=== PATIENT | female | born 1990 | race Caucasian/White ===

== ENCOUNTER → 2017-03-17 | Outpatient (CLI) | payer OTHER ==
--- NOTE | 2017-03-17 13:55 | US ---
EXAMINATION TYPE: US OB <= 14 wk fetus DATE OF EXAM: 03/17/2017 COMPARISON: NONE CLINICAL HISTORY: Z36 Confirm dates. Confirm Dates, pt has no complaints at this time Large pt body habitus EXAM PERFORMED: Transabdominal (TA) EXAM MEASUREMENTS: GESTATIONAL AGE / DATING Physician Established: (13 weeks/1 days) EDC: 09/21/2017 Dates by LMP: Unknown Dates by First Scan: No prior Dates by Current Scan for: (11 weeks/5 days) EDC: 10/01/2017 MATERNAL ANATOMY Uterus: 16.8 x 7.0 x 2.4 cm Right Ovary: 2.4 x 1.5 x 2.3 cm Left Ovary: 3.8 x 2.7 x 3.0 cm Post CDS / Adnexa: wnl Presence of free fluid: No Presence of corpus luteal cyst: Left Ovary= 2.6 x 2.0 x 2.9 cm Presence of subchorionic bleed: No GESTATION / SURVEY CRL: 4.9 cm (11 weeks/5 days) MSD: wnl Heart Rate: 160 bpm Rhythm: Normal IUP: Viable IUP Single, viable IUP/ No abnormality seen at this time Single live into gestation is confirmed as gestational sac and pole are identified. Yolk sac is not clearly seen. No free fluid is seen in pelvic cul-de-sac. Both ovaries are identified. Within the left ovary there is 2.6 cm oval hypoechoic anechoic lesion fe lt to reflect corpus luteal cyst in the periphery. No suspicious extraovarian adnexal lesion is seen. IMPRESSION: Single live intrauterine gestation is confirmed, mean crown-rump length is 4.9 cm corresponding to 11 weeks 5 day old fetus.
[2017-03-17 13:59] LABS: CH 28.3; CHCM 31.9; HCT 35.6 % (34.0-46.0); HDW 2.24; HGB 11.6 gm/dL (11.4-16.0); MCH 29.1 pg (25.0-35.0); MCHC 32.6 g/dL (31.0-37.0); MCV 89.1 fL (80.0-100.0); RDW 13.3 % (11.5-15.5); WBC 10.4 k/uL (3.8-10.6)
[2017-03-17 14:06] LABS: Glucose 100 mg/dL (74-99); Non-African American GFR(MDRD) >60 (>60 ml/min/1.73 sqM)
[2017-03-17 19:00] LABS: Treponemal Ab Non-Reactive (Non-Reactive)
== END | disposition home or self-care (01) ==
LOC: RADUSWWP 12:58
PROVIDERS: ATTEND Obstetrics & Gynecology
DX: Z36.9 Encounter for antenatal screening, unspecified (principal); O26.811 Pregnancy related exhaustion and fatigue, first trimester; Z3A.11 11 weeks gestation of pregnancy
CPT/HCPCS: 36415; 76801; 82565; 82947; 85027; 86762; 86777; 86778; 86780; 86850; 86900; 86901; 87340; 87390

== ENCOUNTER 2017-09-24 05:55 | Inpatient (IN) | payer OTHER ==
--- NOTE | 2017-09-23 19:55 | P.HPOB ---
History of Present Illness H&P Date: 09/23/17 Chief Complaint: Scheduled repeat section This is a 27-year-old female 3 para 2 with an estimated date of confinement of 10/01/2017, estimated gestational age of 39-0/7 weeks, who presents to labor and delivery for scheduled repeat section. Her course has been essentially uncomplicated. labs: GC/chlamydia-negative Hepatitis B surface antigen-negative on nonreactive HIV-nonreactive Rubella-immune Syphilis antibody-negative nonreactive Random glucose-100 Hemoglobin-11.6 Toxoplasma-negative Blood type-A+ Antibody screen-negative Obstetrical ultrasound-normal anatomy One hour Glucola-118 Group B streptococcus-negative Obstetrical history: G 3 P2. History of 2 previous sections. Gynecologic history: No history of sexually transmitted diseases. Social history: She is . She is a [id number] mom. Review of Systems Constitutional: Denies chills, Denies fever Eyes: denies blurred vision, denies pain Ears, nose, mouth and throat: Denies headache, Denies sore throat Cardiovascular: Denies chest pain, Denies shortness of breath Respiratory: Denies cough Gastrointestinal: Reports abdominal pain (Irregular contractions) Genitourinary: Reports pelvic pain, Reports Musculoskeletal: Reports low back pain Integumentary: Denies pruritus, Denies rash Neurological: Denies numbness, Denies weakness Psychiatric: Reports anxiety, Denies depression Past Medical History Past Medical History: No Reported History History of Any Multi-Drug Resistant Organisms: None Reported Past Surgical History: Section (2), Cholecystectomy Past Anesthesia/Blood Transfusion Reactions: Postoperative Nausea & Vomiting ( PONV) Past Psychological History: Anxiety Smoking Status: Former smoker Past Alcohol Use History: Occasional - Past Family History Mother Family Medical History: Cancer Additional Family Medical History / Comment(s): CERVICAL Sister(s) Family Medical History: Cancer Additional Family Medical History / Comment(s): CERVICAL Medications and Allergies Home Medications Medication Instructions Recorded Confirmed Type Pnv,Calcium 72/Iron/Folic Acid 1 tab PO DAILY 01/13/14 09/23/17 History [Pnv Plus Multivit Tab] Iron 45mg 45 mg PO DAILY 09/23/17 History Allergies Allergy/AdvReac Type Severity Reaction Status Date / Time No Known Allergies Allergy Verified 09/23/17 14:35 Exam Osteopathic Statement: *. No significant issues noted on an osteopathic structural exam other than those noted in the History and Physical/Consult. - Vital Signs Vital signs: Intake and Output 09/23/17 09/23/17 09/23/17 06:59 14:59 22:59 Other: Weight 101.151 kg HEENT: Within normal limits Heart: Regular rate and rhythm Lungs: Clear to auscultation bilaterally Abdomen: Cervix: Closed/60%/-3 station heart tones: 150s by Doppler Extremities: Negative Homans Assessment and Plan (1) 39 weeks gestation of Status: Acute Code(s): Z3A.39 - 39 WEEKS GESTATION OF SNOMED Code( s): 29536697 (2) Previous delivery affecting Status: Acute Code(s): O34.21 - MATERNAL CARE FOR SCAR FROM PREVIOUS * DO NOT USE * SNOMED Code(s): 325053872 Plan: Proceed with repeat low transverse section. I have discussed the risks, benefits, and alternative therapies for the above- mentioned procedure and for both sedation/anesthesia as well as necessary blood products administration, if indicated, as they pertain to this patient. The patient has indicated her understanding and acceptance of the risks and procedures discussed.
[2017-09-24] MEDS ORDERED: LIDOCAINE 1% 20 ML VIAL (10MG/ML) FOR IV START INTRADERMA PRN (06:02)
[2017-09-24] MEDS ORDERED: CITRIC ACID-SODIUM CITRATE 15 ML CUP PO ONE (06:02)
[2017-09-24] MEDS ORDERED: ceFAZolin IN SWFI 2 GM/20 ML SYRINGE IVP ONE (06:02)
[2017-09-24] MEDS ORDERED: LACTATED RINGERS 1,000 ML IV ONE (06:02)
[2017-09-24 06:10] VITALS: BMI 41.9
[2017-09-24] MEDS: LACTATED RINGERS 1,000 ML IV SCH ×3 (06:24→18:20)
[2017-09-24 06:27] LABS: Basophils % (A) 0 %; Eosinophils # (A) 0.1 k/uL (0-0.7); Eosinophils % (A) 1 %; HCT 34.9 % (34.0-46.0); HGB 11.8 gm/dL (11.4-16.0); Lymphocytes # (A) 2.3 k/uL (1.0-4.8); Lymphocytes % (A) 24 %; MCH 28.5 pg (25.0-35.0); MCHC 33.9 g/dL (31.0-37.0); Mean Platelet Volume 7.8; Monocytes # (A) 0.4 k/uL (0-1.0); Monocytes % (A) 4 %; Neutrophils # (A) 6.8 k/uL (1.3-7.7); Neutrophils % (A) 69 %; Platelet Count 188 k/uL (150-450); RBC 4.15 m/uL (3.80-5.40); WBC 9.8 k/uL (3.8-10.6)
[2017-09-24] MEDS ORDERED: KETOROLAC 30 MG/ML 1 ML VIAL ONE (07:52)
[2017-09-24] MEDS ORDERED: ONDANSETRON 4 MG/2 ML VIAL ONE (07:52)
[2017-09-24] MEDS ORDERED: MORPHINE SULFATE (PF) 0.3 MG/0.3 ML SYR ONE (07:52)
[2017-09-24] MEDS ORDERED: NALBUPHINE 10 MG/ML AMPUL ONE (07:52)
[2017-09-24] MEDS ORDERED: PHENYLEPHRINE-0.9% NACL SYG 1 MG/10 ML SYRINGE ONE (07:52)
[2017-09-24] MEDS ORDERED: fentaNYL (PF) 50 MCG/ML 2 ML AMP ONE (07:52)
[2017-09-24] MEDS ORDERED: LACTATED RINGERS 1,000 ML BAG IV ONE (07:52)
[2017-09-24] MEDS ORDERED: OXYTOCIN 10 UNIT/ML 1 ML VIAL ONE (07:52)
[2017-09-24] MEDS ORDERED: ONDANSETRON 4 MG/2 ML VIAL IVP PRN ×2 (08:13→10:01)
[2017-09-24] MEDS ORDERED: HYDROmorphone 0.5 MG/0.5 ML SYRINGE IVP PRN (08:13)
[2017-09-24] MEDS ORDERED: diphenhydrAMINE 50 MG/ML 1 ML VIAL IVP PRN ×3 (08:13→10:01)
[2017-09-24] MEDS ORDERED: NALOXONE 0.4 MG/ML 1 ML VIAL IV PRN ×2 (08:13→10:01)
[2017-09-24] MEDS ORDERED: NALBUPHINE 10 MG/ML AMPUL IV PRN (08:13)
--- NOTE | 2017-09-24 08:33 | P.OP ---
Date of Procedure: 09/24/17 Preoperative Diagnosis: 1. Intrauterine at 39-0/7 weeks. 2. History of previous section. Postoperative Diagnosis: Same Procedure(s) Performed: Repeat low transverse section Anesthesia: spinal (Duramorph) Surgeon: Helen Novak [employer] Assistant Manager #1: Anurag Plummer Estimated Blood Loss (ml): 400 Pathology: other (Placenta) Condition: stable Disposition: floor Indications for Procedure: This is a 27-year-old female 3 para 2 at 39-0/7 weeks who presents for scheduled repeat section. I have discussed the risks, benefits, and alternative therapies for the above- mentioned procedure and for both sedation/anesthesia as well as necessary blood products administration, if indicated, as they pertain to this patient. The patient has indicated her understanding and acceptance of the risks and procedures discussed. Operative Findings: A viable female is noted in the vertex presentation with scores of 9 at 1 minute and 9 at 5 minutes and weight of 7 lbs. 9 oz. Nuchal cord times one was noted. Normal uterus tubes and ovaries are noted. There was an omental adhesion noted to the anterior abdominal wall. Description of Procedure: The patient is taken to the operating room where she is placed in the dorsal supine position with leftward tilt after spinal Duramorph anesthesia is given. She is prepped and draped in the normal sterile fashion. Skin was tested and found to be adequately anesthetized. A Pfannenstiel skin incision was made with a scalpel through the previous laparotomy scar. A second knife was used to carry the incision down to the underlying layer of fascia. The fascia was nicked in the midline with a scalpel and then extended laterally bilaterally with Steele scissors. The anterior lip of the fascia was grasped with 2 Dena clamps and then dissected off the underlying rectus muscle in the midline with Steele scissors. The inferior aspect of the fascial incision was grasped with 2 Dena clamps and dissected off the underlying rectus muscle and the midline with Steele scissors. Next the peritoneum layer was tented up with 2 hemostats and then entered sharply with the scalpel. The incision is extended superiorly and inferiorly with Metzenbaum scissors. There was an omental adhesion along the midline that was lysed with Bovie cautery. Good hemostasis was noted. Next a DeLee retractor is placed. The vesicouterine peritoneum is entered sharply with Metzenbaum scissors and extended laterally bilaterally with Metzenbaum scissors and then the bladder flap is pushed inferiorly. The lower uterine segment is incised in transverse fashion with the scalpel and then bluntly entered with a hemostat. Clear fluid is noted. The incision was then extended laterally bilaterally with 2 fingers. Next the infant's head is delivered through the incision. Nose and mouth are bulb suctioned. The remainder of the infant is easily delivered and placed on mother's abdomen. Cord is clamped and cut. is taken to warmer by nursing staff. Uterine fundus is gently massaged and placenta is delivered manually. Uterus is exteriorized and cleared of all clots and debris. Uterine incision is closed with 0 Vicryl suture in a running locked fashion. A second layer of 0 Vicryl suture is used in a running fashion for hemostasis. Once adequate hemostasis as assured, the vesicouterine peritoneum is reapproximated with 2-0 Vicryl suture in a running fashion. Posterior cul-de-sac is suctioned of all clots and debris. Uterus is returned to the abdomen. Incision is noted to be hemostatic. Peritoneal layer is closed with 0 Vicryl suture in a running fashion. Muscle layer is reapproximated with 0 Vicryl suture in interrupted fashion. Fascia layer is then closed with 0 PDS suture with 2 sutures meeting in the midline and the knots buried in either side and in the midline. The subcutaneous tissue was then closed with 2-0 Vicryl suture. Skin layer was then closed with liv. All sponge and needle counts are correct. The patient is taken to recovery room in stable condition.
[2017-09-24] MEDS ORDERED: diphenhydrAMINE 25 MG CAP PO PRN (10:01)
[2017-09-24] MEDS ORDERED: diphenhydrAMINE 50 MG CAP PO PRN (10:01)
[2017-09-24] MEDS ORDERED: ACETAMINOPHEN TAB 325 MG TAB PO PRN (10:01)
[2017-09-24] MEDS ORDERED: SIMETHICONE 80 MG CHEWABLE PO PRN (10:01)
[2017-09-24] MEDS ORDERED: ZOLPIDEM 5 MG TAB PO PRN (10:01)
[2017-09-24] MEDS ORDERED: OXYTOCIN 20 UNITS/1000 ML NS 1,000 ML IV SCH (10:01)
[2017-09-24] MEDS ORDERED: HYDROcodone/APAP 5-325MG 1 EACH TAB PO PRN ×2 (10:01)
[2017-09-24] MEDS: METOCLOPRAMIDE 5 MG/ML 2 ML VIAL IVP PRN ×2 (11:25→19:09)
[2017-09-24] MEDS: SENNOSIDES-DOCUSATE SODIUM 1 EACH TAB PO SCH ×2 (18:19→23:39)
[2017-09-24] MEDS: FERROUS SULFATE 325 MG TAB PO SCH (19:49)
[2017-09-25] MEDS: LACTATED RINGERS 1,000 ML IV SCH (00:21)
[2017-09-25] MEDS: IBUPROFEN 600 MG TAB PO PRN ×3 (01:34→16:16)
--- NOTE | 2017-09-25 06:56 | P.PN ---
Progress Note - Text Date:09/25 Time:702am Patient is status post . Patient seen this morning with VAS score of 2. she is c/o of pruritus, c/o nausea/vomiting, comfortable and doing well today.
[2017-09-25 08:51] LABS: Basophils % (A) 0 %; Eosinophils # (A) 0.1 k/uL (0-0.7); Eosinophils % (A) 1 %; HCT 34.2 % (34.0-46.0); HGB 11.2 gm/dL (11.4-16.0); Lymphocytes # (A) 2.6 k/uL (1.0-4.8); Lymphocytes % (A) 24 %; MCH 28.2 pg (25.0-35.0); MCHC 32.7 g/dL (31.0-37.0); MCV 86.3 fL (80.0-100.0); Mean Platelet Volume 8.4; Monocytes # (A) 0.5 k/uL (0-1.0); Monocytes % (A) 4 %; Neutrophils # (A) 7.6 k/uL (1.3-7.7); Neutrophils % (A) 69 %; Platelet Count 178 k/uL (150-450); RBC 3.97 m/uL (3.80-5.40); WBC 11.1 k/uL (3.8-10.6)
--- NOTE | 2017-09-25 09:11 | P.PNOBGPC ---
Subjective - Subjective Principal diagnosis: Status post section postoperative day #1 Interval history: Patient is doing well. She is ambulating. She is breast-feeding. Lochia is decreasing. Pain is well-controlled with ibuprofen. She is passing flatus but no bowel movement yet. Patient reports: Reports appetite normal, Reports voiding normally, Reports pain well controlled, Reports ambulating normally [place]: doing well, nursing well Objective - Vital Signs Latest vital signs: Vital Signs Temp Pulse Resp BP Pulse Ox 09/25/17 04:00 97.4 F L 55 L 16 112/65 09/25/17 00:00 98.1 F 72 16 120/65 09/24/17 21:08 98 09/24/17 21:00 18 100 09/24/17 20:00 97.2 F L 84 18 117/68 09/24/17 17:00 18 97 09/24/17 16:00 98.3 F 74 18 121/73 09/24/17 13:13 98 09/24/17 13:00 16 09/24/17 12:00 98.2 F 62 16 110/59 09/24/17 11:13 16 09/24/17 10:38 98.4 F 80 16 105/57 09/24/17 10:09 81 16 105/59 09/24/17 09:39 97.8 F 81 16 102/58 09/24/17 09:24 96.8 F L 103 H 16 105/57 09/24/17 09:13 16 95 Intake and Output 09/24/17 09/25/17 09/25/17 22:59 06:59 14:59 Intake Total 650 Output Total 900 900 Balance -900 -250 Intake: Oral 650 Output: Urine 700 700 Uretheral ([place]) 350 Emesis 200 200 - Exam Extremities: Present: normal. Absent: tenderness Abdomen: Present: normal appearance, soft (Positive bowel sounds 4). Absent: distention, tenderness Incision: Present: normal, dry, intact. Absent: erythematous Uterus: Present: normal, firm. Absent: tenderness - Labs Labs: Abnormal Lab Results - Last 24 Hours (Table) 09/25/17 Range/Units 08:23 WBC 11.1 H (3.8-10.6) k/uL Hgb 11.2 L (11.4-16.0) gm/dL Assessment and Plan Assessment: Status post repeat section postoperative day #1 (1) 39 weeks gestation of Current Visit: Yes Status: Acute Code(s): Z3A.39 - 39 WEEKS GESTATION OF SNOMED Code(s): 43110947 (2) Previous delivery affecting Current Visit: No Status: Acute Code(s): O34.21 - MATERNAL CARE FOR SCAR FROM PREVIOUS * DO NOT USE * SNOMED Code(s): 194000490 Plan: Continue with postoperative and care.
[2017-09-25] MEDS: PRENATAL VIT-IRON-FOLIC ACID 1 EACH CAP PO SCH (11:19)
[2017-09-25] MEDS: FERROUS SULFATE 325 MG TAB PO SCH (11:19)
[2017-09-25] MEDS: SENNOSIDES-DOCUSATE SODIUM 1 EACH TAB PO SCH (11:19)
[2017-09-26] MEDS: IBUPROFEN 600 MG TAB PO PRN ×2 (04:47→13:08)
[2017-09-26] MEDS: SENNOSIDES-DOCUSATE SODIUM 1 EACH TAB PO SCH (08:40)
[2017-09-26] MEDS: FERROUS SULFATE 325 MG TAB PO SCH (08:46)
[2017-09-26] MEDS: PRENATAL VIT-IRON-FOLIC ACID 1 EACH CAP PO SCH (08:46)
[2017-09-26 09:44] VITALS: BP 121/69; PULSE 60; RESP 18; TEMP 97.7
--- NOTE | 2017-09-26 10:59 | P.DS ---
Providers Date of admission: 09/24/17 05:55 Expected date of discharge: 09/26/17 Attending physician: Helen Novak Primary care physician: Stated None - Discharge Diagnosis(es) (1) Status post repeat low transverse section Current Visit: Yes Status: Acute Hospital Course: Patient presented for repeat low transverse and underwent this procedure without complication. She denies nausea, vomiting, chest pain, shortness of breath or calf pain. Her post operative course was uneventful. She is tolerating regular diet ambulating and voiding without difficulty. She' ll be discharged home postoperative day #2 in stable condition to follow-up with Dr. Novak in one week. Plan - Discharge Summary Discharge Rx Participant: Yes New Discharge Prescriptions: New Ibuprofen [Motrin] 600 mg PO Q6HR PRN #60 tab PRN Reason: Mild Pain Or Fever >= 100.5 Continue Pnv,Calcium 72/Iron/Folic Acid [Pnv Plus Multivit Tab] 1 tab PO DAILY Discontinued Iron 45mg 45 mg PO DAILY Discharge Medication List Pnv,Calcium 72/Iron/Folic Acid [Pnv Plus Multivit Tab] 1 tab PO DAILY 01/13/14 [History] Ibuprofen [Motrin] 600 mg PO Q6HR PRN #60 tab 09/25/17 [Rx] Follow up Appointment(s)/Referral(s): Helen Novak DO [Doctor of Osteopathic Medicine] - 1 Week Activity/Diet/Wound Care/Special Instructions: Instructions 1. Do not begin any exercise program for 3 weeks. 2. Do not resume sexual relations for 3 weeks or longer if uncomfortable. 3. You may take tub baths or showers at any time. 4. You may use tampons if desired after 3 weeks. 5. Keep the area of episiotomy (stitches) clean and dry. 6. If you are not nursing, wear a good fitting, supportive bra during the day and limit fluid intake for at least 1 week to prevent breast engorgement. 7. Call the office, [phone], within the next week to make appointment for your 6 week checkup if it has not already been made. 8. Report any of the following occurrences to the doctor promptly: a. Heavy, excessive bleeding b. Chills, fever c. Burning or frequency of urination d. Pain or redness and breasts if nursing e. Increasing pain or swelling in episiotomy (stitches). In addition to the above instructions, the following additional should be followed: 1. No heavy lifting or straining (exercising) until after 6 week checkup. 2. Keep abdominal incision clean and dry: You may wear a dressing if more comfortable. 3. Make office appointment for 10 days after going home or as instructed by her doctor. Discharge Disposition: HOME SELF-CARE
== END 2017-09-26 13:05 | disposition home or self-care (01) | DRG 766 ==
LOC: 4FBP 05:55
PROVIDERS: ADMIT Obstetrics & Gynecology; ATTEND Obstetrics & Gynecology
PROC: 10D00Z1 Extraction of Products of Conception, Low, Open Approach (ICD-10-PCS; principal; 2017-09-24 08:00)
DX: O34.211 Maternal care for low transverse scar from previous cesarean delivery (principal); O99.344 Other mental disorders complicating childbirth; F41.9 Anxiety disorder, unspecified; Z37.0 Single live birth; Z3A.39 39 weeks gestation of pregnancy; Z90.49 Acquired absence of other specified parts of digestive tract; Z87.891 Personal history of nicotine dependence; Z80.49 Family history of malignant neoplasm of other genital organs; O69.81X0 Labor and delivery complicated by cord around neck, without compression, not applicable or unspecified
CPT/HCPCS: 85025; 86850; 86900; 86901; 88307; 94760